=== PATIENT | male | born 1975 | race Two or more races ===

== ENCOUNTER 2024-08-19 20:02 | Emergency (ER) | payer OTHER ==
[2024-08-19 20:11] VITALS: BP 147/85; PULSE 86; RESP 17; TEMP 98.2; BMI 32.3
[2024-08-19] MEDS ORDERED: KETOROLAC TROMETHAMINE 30 MG/1 ML VIAL ONE (21:32)
[2024-08-19] MEDS ORDERED: CEPHALEXIN MONOHYDRATE 500 MG CAPSULE (UD) ONE (21:32)
[2024-08-19] MEDS: CEPHALEXIN MONOHYDRATE 500 MG CAPSULE (UD) PO ONE (21:35)
[2024-08-19] MEDS: KETOROLAC TROMETHAMINE 30 MG/1 ML VIAL IM ONE (21:36)
== END 2024-08-19 22:29 | disposition home or self-care (01) ==
LOC: JERFT 20:02
PROC: 3E0233Z Introduction of Anti-inflammatory into Muscle, Percutaneous Approach (ICD-10-PCS; principal; 2024-08-19)
DX: M77.8 Other enthesopathies, not elsewhere classified (principal); R21 Rash and other nonspecific skin eruption
CPT/HCPCS: 99284-25